=== PATIENT | male | born 1995 | race Caucasian/White ===

== ENCOUNTER 2022-08-07 17:46 | Emergency (ER) | payer BC, MEDICAID ==
[~2022-08-07 17:46] MED LIST: PARO-153 PO
== END 2022-08-07 19:19 | disposition left against medical advice (07) ==
LOC: ER 17:47
DX: Z00.8 Encounter for other general examination (principal); Z53.21 Procedure and treatment not carried out due to patient leaving prior to being seen by health care provider
CPT/HCPCS: 99281